=== PATIENT | female | born 1940 | race Caucasian/White ===

== ENCOUNTER 2016-12-16 08:42 | Emergency (ER) | payer OTHER ==
[2016-12-16] MEDS ORDERED: NS 500 ML IV ONE (09:23)
--- NOTE | 2016-12-16 09:53 | DX ---
Portable Chest, Single View 9:37 a.m. Hours Indication: Chest pain Comparison: 2 view chest dated August 28, 2009 Findings: Lungs remain well aerated and clear. Minimal diffuse peribronchial thickening is unchanged 2008. Heart size normal. Impression: Negative. No acute process.
[2016-12-16 09:55] VITALS: BP 149/86; PULSE 59; RESP 16; TEMP 98.6; O2SAT 96
--- NOTE | 2016-12-16 10:02 | UCPHY ---
H & P Time Seen by Provider: 12/16/16 09:24 Patient Type: Established HPI/ROS: HPI Fatigue, low energy. 76-year-old female by private vehicle. She reports that on November 17 she started feeling fatigued and describes this as having low energy as well as a decreased appetite and intermittent fever. She reports that she also had some intermittent headaches back in early November but these have resolved. She reports that she quit drinking caffeine in the form of coffee around November 17 as well and attributes her headaches to cessation of caffeine. She reports that she started feeling better on November 26 and . That over the last few days the symptoms have returned. ROS: Constitutional: As above. Eyes: No discharge. No changes in vision. ENT: No sore throat. No nasal congestion or rhinorrhea. Respiratory: No cough. No shortness of breath. Cardiac: No chest pain, no palpitations. Gastrointestinal: No abdominal pain, no vomiting, no diarrhea. Genitourinary: No hematuria. No dysuria or increased frequency with urination. Musculoskeletal: No back pain. No neck pain. No myalgias or arthralgias. Skin: No rashes. Neurological: As above. No focal weakness or altered sensation. Past medical history: Kidney stones, hysterectomy, broken heart syndrome, hypothyroidism, Yeimi's thyroiditis, type 2 diabetes, hypertrophic cardiomyopathy, hypertension, fibromyalgia, osteopenia. Primary care physician is Dr. Kate at the [facility]. Social history: Lives by herself. Nonsmoker. No alcohol. Physical Exam: General Appearance: Alert, no distress. This patient is responding to questions appropriately and in full sentences. This patient appears well- hydrated and well-nourished. Eyes: Pupils equal and round no pallor or injection. No lid edema, erythema or injection. ENT, Mouth: Mucous membranes are moist. The pharyngeal tissues are unremarkable. No edema or swelling. No asymmetry suggestive of abscess. No erythema or exudates. No proptosis. Respiratory: There are no retractions, lungs are clear to auscultation with good air movement bilaterally. Cardiovascular: Regular rate and rhythm. No murmur. Gastrointestinal: Abdomen is soft and nontender, no masses, bowel sounds normal. No focal tenderness at McBurney's point. No Brooks sign. Neurological: Motor sensory function is grossly intact. Cranial nerves are normal. Gait is normal. Skin: Warm and dry, no rashes. Musculoskeletal: Neck is supple and nontender. No CVA tenderness on palpation. Extremities are symmetrical. No pretibial edema. All joints range without pain or impingement. Psychiatric: No agitation. No depression. Database: EKG: EKG time is 9:49 a.m.; EKG shows a narrow complex normal sinus rhythm with a ventricular rate of 58. The OR, QRS, QT intervals are within normal limits. There is an incomplete right bundle branch block. Q-waves noted in 2, 3, AVF, V3, V4, V5 and V6. These are present on an old EKG from June of 2014. There are no ST-T wave changes indicative of ischemic or injury pattern. No evidence of right heart strain. Interpreted by me. Imaging: Chest x-ray AP portable; the cardiac mediastinal silhouette is unremarkable. No evidence of infiltrate or pneumothorax. No acute cardiopulmonary disease process noted. Interpreted by me. Procedures: Emergency department course: IV placed. She was placed on a monitoring manager. She will be started on IV normal saline with 250 cc 2 500 cc to be given over the next 1-2 hours. Her vital signs have been reviewed. She is mildly bradycardic a moderately hypertensive. 12:00 p.m., patient re-evaluated. Resting comfortably at this time. She has no complaints currently. Results of her blood work except for thyroid study and urinalysis discussed. She states she is able urinate force at this time. 12:20 p.m., discussed results of urinalysis and diagnosis of urinary tract infection. Discussed starting the patient on antibiotics. She was given 500 mg of Keflex. Results of TSH reviewed with her. She feels comfortable going home and I feel she is safe for discharge. I will have her follow up with her primary care physician. She will be prescribed Keflex for treatment of urinary tract infection. Otherwise her vital signs and diagnostic workup are reassuring. Return to Urgent Care precautions discussed with her. All of her questions were answered. She was discharged in good condition. Differential Diagnosis: The differential diagnosis on this patient includes but is not limited to viral syndrome, hypothyroid state, urinary tract infection. Acute coronary syndrome, pneumonia, serious bacterial infection unlikely. This represents a partial list of diagnoses considered. These considerations are based on history, physical exam, past history, reassessment and diagnostic testing. Smoking Status: Former smoker Constitutional: Initial Vital Signs Temperature (C) 37 C 12/16/16 09:47 Heart Rate 59 L 12/16/16 09:47 Respiratory Rate 16 12/16/16 09:47 Blood Pressure 149/86 H 12/16/16 09:47 O2 Sat (%) 96 12/16/16 09:47 O2 Delivery Mode Room Air Allergies/Adverse Reactions: adenosine Allergy (Verified 12/16/16 09:55) Rash diltiazem Allergy (Verified 12/16/16 09:55) Other-Enter Comments fructose Allergy (Verified 12/16/16 09:55) GI UPSET Home Medications: Medication Instructions Recorded Cholecalciferol Vit D3 [Vitamin D3 2,000 units PO HS 08/01/15 2000 units] Docusate Sodium [Colace 100 MG (*)] 100 mg PO HS 08/01/15 Famotidine [Pepcid 20 MG (*)] 20 mg PO Q2D 08/01/15 Gabapentin [Neurontin 300 MG (*)] 600 mg PO BID 08/01/15 Hydrocodone/APAP 5/325 [[place] 0.5 each PO DAILY PRN 08/01/15 5/325 (*)] Levothyroxine [Synthroid 100 mcg 100 mcg PO DAILY06 08/01/15 (*)] Losartan Potassium [Cozaar 50 mg 50 mg PO DAILY 08/01/15 (*)] Metoprolol Tartrate [Lopressor 100 100 mg PO BID 08/01/15 mg (*)] Omeprazole [Prilosec 20 mg] 20 mg PO Q2D 08/01/15 Pentoxifylline [TRENTAL 400mg (*)] 400 mg PO BID 08/01/15 Simvastatin [Zocor] 20 mg PO HS 08/01/15 Zaleplon [ZALEPLON] 10 mg PO HS PRN 08/01/15 sitaGLIPtin PHOSPHATE [Januvia 100 100 mg PO DAILY 08/01/15 MG (*)] Cephalexin [Keflex (*)] 500 mg PO Q6 7 Days 12/16/16 Medical Decision Making - Data Points Laboratory Results: Laboratory Results 12/16/16 11:00 12/16/16 11:00 12/16/16 12/16/16 12/16/16 12:10 11:00 10:25 WBC 6.82 10^3/uL (3.80-9.50) RBC 4.53 10^6/uL (4.18-5.33) Hgb 14.3 g/dL (12.6-16.3) Hct 41.8 % (38.0-47.0) MCV 92.3 fL (81.5-99.8) MCH 31.6 pg (27.9-34.1) MCHC 34.2 g/dL (32.4-36.7) RDW 13.5 % (11.5-15.2) Plt Count 192 10^3/uL (150-400) MPV 9.9 fL (8.7-11.7) Neut % (Auto) 60.0 % (39.3-74.2) Lymph % (Auto) 26.0 % (15.0-45.0) [place] % (Auto) 9.8 % (4.5-13.0) Eos % (Auto) 3.2 % (0.6-7.6) Baso % (Auto) 0.7 % (0.3-1.7) Nucleat RBC Rel Count 0.0 % (0.0-0.2) Absolute Neuts (auto) 4.09 10^3/uL (1.70-6.50) Absolute Lymphs (auto) 1.77 10^3/uL (1.00-3.00) Absolute Monos (auto) 0.67 10^3/uL (0.30-0.80) Absolute Eos (auto) 0.22 10^3/uL (0.03-0.40) Absolute Basos (auto) 0.05 10^3/uL (0.02-0.10) Absolute Nucleated RBC 0.00 10^3/uL (0-0.01) Immature Gran % 0.3 % (0.0-1.1) Immature Gran # 0.02 10^3/uL (0.00-0.10) PT 12.4 SEC (12.0-15.0) INR 0.94 (0.83-1.16) APTT 29.6 SEC (23.0-38.0) Sodium 141 mEq/L (134-144) Potassium 4.2 mEq/L (3.5-5.2) Chloride 102 mEq/L (97-110) Carbon Dioxide 25 mEq/l (22-31) Anion Gap 14 mEq/L (8-16) BUN 11 mg/dL (7-23) Creatinine 0.7 mg/dL (0.6-1.0) Estimated GFR > 60 Glucose 118 H mg/dL (70-100) Calcium 9.7 mg/dL (8.5-10.4) Troponin I < 0.012 ng/mL (0-0.034) TSH 0.485 uIU/mL (0.465-4.680) Urine Color YELLOW Urine Appearance CLEAR Urine pH 6.0 (5.0-7.5) Ur Specific [place] 1.020 (1.002-1.030) Urine Protein NEGATIVE (NEGATIVE) Urine Ketones NEGATIVE (NEGATIVE) Urine Blood 2+ H (NEGATIVE) Urine Nitrate POSITIVE H (NEGATIVE) Urine Bilirubin NEGATIVE (NEGATIVE) Urine Urobilinogen 0.2 EU (0.2-1.0) Ur Leukocyte Esterase TRACE H (NEGATIVE) Urine RBC 15-25 H /hpf (0-3) Urine WBC 10-15 H /hpf (0-3) Ur Epithelial Cells 1+ /lpf (NONE-1+) Urine Bacteria 4+ H /hpf (NONE SEEN) Urine Mucus 1+ /lpf (NONE-1+) Ur Culture Indicated? INDICATED H (NI) Urine Glucose NEGATIVE (NEGATIVE) Influenza Typ A,B (DFA) NEGATIVE FOR FLU (NEGATIVE) Medications Given: Discontinued Medications Cephalexin HCl (Keflex) 500 mg PO EDNOW ONE PRN Reason: Protocol Stop: 12/16/16 12:24 Last Admin: 12/16/16 12:43 Dose: 500 mg Sodium Chloride (Ns) 500 mls @ 0 mls/hr IV ONCE ONE PRN Reason: As Directed Stop: 12/16/16 09:24 Last Admin: 12/16/16 12:24 Dose: Not Given Departure - Departure Disposition: Home, Routine, Self-Care Clinical Impression: Fatigue, Urinary tract infection Condition: Good Instructions: Urinary Tract Infection in Women (ED) Additional Instructions: Read and follow provided instructions. Follow-up with your primary care physician in 1-2 days for re-evaluation. Take medication as prescribed. Keep well hydrated and get plenty of rest. Return to the emergency department for worsening symptoms or other serious concerns. Referrals: Annette Kate MD [Primary Care Provider] - As per Instructions Prescriptions: Cephalexin [Keflex (*)] 500 mg PO Q6 7 Days - PQRS PQRS Measurement: 134: Depression screening and followup, PRIME MD-PHQ2 (12 years and older) Over the last 2 weeks, how often have you been bothered by any of the following problems? 1. Feeling down, depressed, or hopeless? 2. Little interest or pleasure in doing things? Answered no to both questions. 130: Documentation of medications. Reviewed all patient medications, doses, route and frequency. 226: Do you smoke? No. 47: 65 and older: Advanced care planning. Patient designates surrogate decision maker as family. 51: 18 years old and older with diagnosis of COPD, spirometry performance. NA 52: 18 years old and older with COPD and symptoms of COPD or FEV1<60% predicted prescribed a B Agonist. NA
[2016-12-16 11:08] LABS: % IMMATURE GRANULYOCYTES 0.3 % (0.0-1.1); ABSOLUTE IMMATURE GRANULOCYTES 0.02 10^3/uL (0.00-0.10); ADD DIFF? NO; ADD MORPH? NO; ADD SCAN? NO; ATYPICAL LYMPHOCYTE FLAG 0 (0-99); FRAGMENT RBC FLAG 0 (0-99); HEMATOCRIT 41.8 % (38.0-47.0); HEMOGLOBIN 14.3 g/dL (12.6-16.3); LEFT SHIFT FLG 0 (0-99); LIPEMIA HEMOLYSIS FLAG 90 (0-99); MEAN CELL HEMOGLOBIN 31.6 pg (27.9-34.1); MEAN CELL HEMOGLOBIN CONCENTR. 34.2 g/dL (32.4-36.7); MEAN CELL VOLUME 92.3 fL (81.5-99.8); MEAN PLATELET VOLUME 9.9 fL (8.7-11.7); PLATELET CLUMPS FLAG 0 (0-99); PLATELET COUNT 192 10^3/uL (150-400); RED BLOOD CELL COUNT 4.53 10^6/uL (4.18-5.33); RED CELL DISTRIBUTION WIDTH 13.5 % (11.5-15.2)
[2016-12-16 11:17] LABS: INR 0.94 (0.83-1.16); PROTIME(PATIENT) 12.4 SEC (12.0-15.0)
[2016-12-16 11:18] LABS: APTT 29.6 SEC (23.0-38.0)
[2016-12-16 11:24] LABS: ANION GAP 14 mEq/L (8-16); CALCIUM 9.7 mg/dL (8.5-10.4); CARBON DIOXIDE 25 mEq/l (22-31); CHLORIDE 102 mEq/L (97-110); CREATININE 0.7 mg/dL (0.6-1.0); GLOMERULAR FILTRATION RATE > 60; GLUCOSE 118 mg/dL (70-100); POTASSIUM 4.2 mEq/L (3.5-5.2); SODIUM 141 mEq/L (134-144)
[2016-12-16 11:42] LABS: TROPONIN I < 0.012 ng/mL (0-0.034)
[2016-12-16 12:16] LABS: COLOR YELLOW; LEUKOCYTE ESTERASE,URINE TRACE (NEGATIVE); NITRITE,URINE POSITIVE (NEGATIVE)
[2016-12-16] MEDS ORDERED: CEPHALEXIN 500 MG CAP PO ONE (12:23)
[2016-12-16 12:26] LABS: BACTERIA 4+ /hpf (NONE SEEN); MUCUS 1+ /lpf (NONE-1+); RBC,URINE 15-25 /hpf (0-3)
--- NOTE | 2016-12-16 12:33 | CPEKG ---
Heart Rate: 58 RR Interval: 1034 P-R Interval: 164 QRSD Interval: 116 QT Interval: 468 QTC Interval: 460 P [place]: 53 QRS [place]: 91 T Wave [place]: 34 EKG Severity - ABNORMAL ECG - EKG Impression: SINUS RHYTHM EKG Impression: INCOMPLETE RIGHT BUNDLE BRANCH BLOCK EKG Impression: INFERIOR INFARCT, OLD Electronically Signed By: Flavio Mahajan 16-Dec-2016 13:00:35
== END 2016-12-16 12:43 | disposition home or self-care (01) ==
LOC: CED 08:42
DX: N39.0 Urinary tract infection, site not specified (principal)
CPT/HCPCS: 71010; 93005; G0463; 80048-PO; 81003-PO; 81015-PO; 84443-PO; 84484-PO; 85025-PO; 85610-PO; 85730-PO; 87400-PO; 93010-PO; 99215-PO

== ENCOUNTER → 2016-12-23 | Outpatient (CLI) | payer OTHER ==
--- NOTE | 2016-12-23 16:35 | DX ---
Paranasal Sinuses (Four Views) Clinical Indications: Chronic sinusitis in a 76-year-old female. Findings: The sinuses are normally developed and well aerated. The sinuses are clear. No osseous ero sive changes are identified. The nasal septum is midline. No masses and no fluid levels are seen. Impression: Normal study, negative for sinusitis.
== END ==
LOC: BMCIMAGING 15:21
PROVIDERS: ATTEND Internal Medicine
DX: R51 Headache (principal)

== ENCOUNTER 2017-01-29 09:40 | Emergency (ER) | payer OTHER ==
[2017-01-29 10:32] VITALS: BP 149/86; PULSE 71; RESP 18; TEMP 98.1; O2SAT 95
[2017-01-29 10:58] LABS: COLOR YELLOW; NITRITE,URINE NEGATIVE (NEGATIVE); PH,URINE 6.5 (5.0-7.5)
[2017-01-29 11:01] LABS: LEUKOCYTE ESTERASE,URINE 1+ (NEGATIVE)
[2017-01-29 11:11] LABS: RENAL EPITHELIAL CELLS OCCASIONAL /hpf (NONE SEEN); WBC,URINE 25-50 /hpf (0-3)
[2017-01-29 11:12] LABS: BACTERIA 4+ /hpf (NONE SEEN)
--- NOTE | 2017-01-29 11:19 | UCPHY ---
H & P Patient Type: Established Chief Complaint Nursing Narrative: MILD ABD PAIN, FATIGUE WITH NAUSEA YESTERDAY , LOW GRADE FEVER. RECENTLY TREATED FOR UTI 6 WEEKS AGO, TOOK FULL COURSE OF ABX Time Seen by Provider: 01/29/17 10:38 HPI/ROS: This patient presents with a chief complaint of malaise, nausea and some low abdominal discomfort which is currently not present. The patient has not been ill f since November 17 with similar nonspecific symptoms. Yesterday she had a temperature of a 100.5 degrees but her review of systems is generally late negative and is listed below. She was seen here on the 16 of December and at that time was diagnosed with the UTI which subsequently grew out E coli and placed on Keflex to which the organism was sensitive. At that time she had a normal CBC, her chemistries were negative, clotting studies normal, as were an EKG and a chest x-ray. REVIEW OF SYSTEMS: Constitutional: Intermittent low-grade fever, malaise Eyes: No complaints ENT: Mild rhinitis attributed to allergies but denies sore throat, ear pain Respiratory: No chest pain, no cough, some shortness of breath last night with noisy respirations Cardiac: No chest pain Gastrointestinal: See above, diminished appetite, gassy Genitourinary: Some frequency but denies urgency, dysuria or hematuria Musculoskeletal: No myalgias, no edema in the lower extremities Skin: No rash Neurological: Headache attributed to caffeine withdrawal. Source: Patient, RN notes reviewed, Old records Exam Limitations: No limitations - Medical/Surgical History Hx Asthma: No Hx Chronic Respiratory Disease: No Hx Diabetes: Yes Hx Cardiac Disease: Yes Hx Renal Disease: No Hx Cirrhosis: No Hx Alcoholism: No Hx HIV/AIDS: No Hx Splenectomy or Spleen Trauma: No Other PMH: kidney stones, takotsubo cardiomyopathy, cardio ablation, framinotomy , hashimotos, type 2 diabetes, HTN, fibromyalgia, osteopenia - Family History Significant Family History: No pertinent family hx - Social History Smoking Status: Former smoker - Physical Exam Exam: GENERAL: Well-appearing, well-nourished and in no acute distress. HEAD: Atraumatic, normocephalic. EYES: Pupils equal round and reactive to light, extraocular movements intact, sclera anicteric, conjunctiva are normal. ENT: nares patent, oropharynx clear without exudates. Moist mucous membranes. NECK: Normal range of motion, supple without lymphadenopathy or JVD. LUNGS: Breath sounds clear to auscultation bilaterally and equal. No wheezes rales or rhonchi. HEART: Regular rate and rhythm without murmurs, rubs or gallops. ABDOMEN: Soft, nontender, normoactive bowel sounds. No guarding, no rebound. No masses appreciated. Bowel sounds are increased EXTREMITIES: Normal range of motion, no pitting or edema. No clubbing or cyanosis. No calf tenderness NEUROLOGICAL: Cranial nerves II through XII grossly intact. Normal speech, normal gait. PSYCH: Normal mood, normal affect. SKIN: Warm, dry, normal turgor, no visible rashes or lesions. Back: No CVA or other tenderness Constitutional: Initial Vital Signs Temperature (C) 36.7 C 01/29/17 10:29 Heart Rate 71 01/29/17 10:29 Respiratory Rate 18 01/29/17 10:29 Blood Pressure 149/86 H 01/29/17 10:29 O2 Sat (%) 95 01/29/17 10:29 O2 Delivery Mode Room Air Allergies/Adverse Reactions: adenosine Allergy (Verified 01/29/17 10:25) Rash diltiazem Allergy (Verified 01/29/17 10:25) Other-Enter Comments fructose Allergy (Verified 01/29/17 10:25) GI UPSET Home Medications: Medication Instructions Recorded Cholecalciferol Vit D3 [Vitamin D3 2,000 units PO HS 08/01/15 2000 units] Docusate Sodium [Colace 100 MG (*)] 100 mg PO HS 08/01/15 Famotidine [Pepcid 20 MG (*)] 20 mg PO Q2D 08/01/15 Gabapentin [Neurontin 300 MG (*)] 600 mg PO BID 08/01/15 Hydrocodone/APAP 5/325 [[place] 0.5 each PO DAILY PRN 08/01/15 5/325 (*)] Levothyroxine [Synthroid 100 mcg 100 mcg PO DAILY06 08/01/15 (*)] Losartan Potassium [Cozaar 50 mg 50 mg PO DAILY 08/01/15 (*)] Metoprolol Tartrate [Lopressor 100 100 mg PO BID 08/01/15 mg (*)] Omeprazole [Prilosec 20 mg] 20 mg PO Q2D 09/15/15 Pentoxifylline [TRENTAL 400mg (*)] 400 mg PO BID 08/01/15 Simvastatin [Zocor] 20 mg PO HS 08/01/15 Zaleplon [ZALEPLON] 10 mg PO HS PRN 08/01/15 sitaGLIPtin PHOSPHATE [Januvia 100 100 mg PO DAILY 08/01/15 MG (*)] Cephalexin [Keflex (*)] 500 mg PO Q6 7 Days 12/16/16 Nitrofurantoin Macrobid [Macrobid] 100 mg PO BID #14 cap 01/29/17 Ondansetron Odt [Zofran Odt] 4 mg PO Q4PRN PRN #4 tab 01/29/17 Medical Decision Making Differential Diagnosis: In spite of this patient's abnormal urinalysis I am not complete that a urinary tract infection is the cause of her symptoms. Previously she took the antibiotics but did not feel better for several days and symptoms have recurred. She did have a normal urine culture in mid December. Because of her previously normal laboratory testing imaging an EKG I did not feel that it would be worthwhile to repeat any Of these. A culture is pending - Data Points Laboratory Results: 01/29/17 10:50 Urine Color YELLOW Urine Appearance HAZY Urine pH 6.5 (5.0-7.5) Ur Specific [place] 1.015 (1.002-1.030) Urine Protein NEGATIVE (NEGATIVE) Urine Ketones NEGATIVE (NEGATIVE) Urine Blood 2+ H (NEGATIVE) Urine Nitrate NEGATIVE (NEGATIVE) Urine Bilirubin NEGATIVE (NEGATIVE) Urine Urobilinogen 0.2 EU EU (0.2-1.0) Ur Leukocyte Esterase 1+ H (NEGATIVE) Urine RBC 5-10 /hpf H /hpf (0-3) Urine WBC 25-50 /hpf H /hpf (0-3) Ur Epithelial Cells TRACE /lpf /lpf (NONE-1+) Ur Renal Epithelial Cell OCCASIONAL /hpf H /hpf (NONE SEEN) Urine Bacteria 4+ /hpf H /hpf (NONE SEEN) Ur Culture Indicated? INDICATED H (NI) Urine Glucose NEGATIVE (NEGATIVE) Departure - Departure Disposition: Home, Routine, Self-Care Condition: Good Instructions: Urinary Tract Infection in Women (ED) Additional Instructions: You should follow-up with your script writer as quickly as possible. Although I am treating you for urinary tract infection I am not convinced that that is the cause of your symptoms. Referrals: Annette Kate MD [Primary Care Provider] - As per Instructions Sami Vences MD [Medical Doctor] - As per Instructions Prescriptions: Nitrofurantoin Macrobid [Macrobid] 100 mg PO BID #14 cap Ondansetron Odt [Zofran Odt] 4 mg PO Q4PRN PRN #4 tab PRN Reason: For Nausea & Vomiting - PQRS PQRS Measurement: Not applicable
== END 2017-01-29 11:42 | disposition home or self-care (01) ==
LOC: CED 09:40
DX: R50.9 Fever, unspecified (principal); R10.9 Unspecified abdominal pain; R53.83 Other fatigue; I10 Essential (primary) hypertension; E11.9 Type 2 diabetes mellitus without complications; E06.3 Autoimmune thyroiditis; M85.80 Other specified disorders of bone density and structure, unspecified site; Z87.891 Personal history of nicotine dependence
CPT/HCPCS: 81003-PO; 81015-PO; 99214-PO; G0463-PO

== ENCOUNTER → 2017-06-05 | Outpatient (CLI) | payer OTHER | LOC: BMCIMAGING 13:53 | PROVIDERS: ATTEND Internal Medicine | DX: Z12.31 Encounter for screening mammogram for malignant neoplasm of breast (principal) | CPT/HCPCS: G0202 ==

== ENCOUNTER → 2017-07-18 | Outpatient (CLI) | payer OTHER | LOC: BMCIMAGING 12:31 | PROVIDERS: ATTEND Internal Medicine | DX: K76.89 Other specified diseases of liver (principal) ==

== ENCOUNTER 2017-12-16 00:42 | Emergency (ER) | payer OTHER ==
--- NOTE | 2017-12-16 00:59 | EDPHY ---
H & P Time Seen by Provider: 12/16/17 00:49 HPI/ROS: 77-year-old female with past medical history including hypertension, cardiomyopathy with ablation, diabetes, hyperlipidemia, fibromyalgia presents today complaining bilateral arm heaviness/achiness similar to when her cardiomyopathy was diagnosed in 2008, abdominal bloating. She states she has been given a diagnosis of irritable bowel syndrome and recently has had approximately 2 weeks loose stools and bloating. She states the arm heaviness has resolved, however that it lasted for several hours. Review of systems As per HPI General no fever no chills no weakness HEENT no eye pain no eye discharge. No eye redness, no sore throat Respiratory no cough, no shortness of breath Cardiac no chest pain, no peripheral edema GI no abdominal pain, positive diarrhea, positive constipation, positive abdominal bloating no nausea, no vomiting no flank pain, no hematuria, no dysuria Musculoskeletal positive myalgias, no joint pain Heme no easy bruising, no easy bleeding Endo no polyuria, no polydipsia Skin no rashes, no pruritus Neuro no syncope, no dizziness, no headaches Psych is no suicidal ideation, no homicidal ideation Past Medical/Surgical History: Past medical history Hypertension Yeimi's Oye-rbjffdu-mztkfhltk diabetes mellitus Osteopenia Fibromyalgia Cardiomyopathy Social History: Denies alcohol or drug use Lives alone Smoking Status: Former smoker Physical Exam: 77-year-old female alert and oriented no acute distress nontoxic appearance, afebrile HEENT atraumatic normocephalic, extraocular muscles intact, anicteric Oropharynx negative for erythema negative exudate, tolerating her own secretions Neck supple no meningismus Lungs clear to auscultation bilaterally Heart regular rate and rhythm without murmur rub or gallop Abdomen distended, tympanitic, hyperactive bowel sounds with occasional tinkling Back no CVA tenderness, no step-offs, no spinal tenderness Extremities no cyanosis clubbing or edema Neuro alert and oriented, no focal deficits Constitutional: Initial Vital Signs Temperature (C) 36.4 C 12/16/17 01:04 Heart Rate 67 12/16/17 01:04 Respiratory Rate 20 12/16/17 01:04 Blood Pressure 126/66 H 12/16/17 01:04 O2 Sat (%) 95 12/16/17 01:04 O2 Delivery Mode Room Air Allergies/Adverse Reactions: adenosine Allergy (Verified 12/16/17 01:04) Rash diltiazem Allergy (Verified 12/16/17 01:04) Other-Enter Comments fructose Allergy (Verified 12/16/17 01:04) GI UPSET Home Medications: Medication Instructions Recorded Levothyroxine [Synthroid 100 mcg 100 mcg PO DAILY06 08/01/15 (*)] Losartan Potassium [Cozaar 50 mg 50 mg PO DAILY 08/01/15 (*)] Metoprolol Tartrate [Lopressor 100 100 mg PO BID 08/01/15 mg (*)] Omeprazole [Prilosec 20 mg] 20 mg PO Q2D 08/01/15 Zaleplon [ZALEPLON] 10 mg PO HS PRN 08/01/15 sitaGLIPtin PHOSPHATE [Januvia 100 100 mg PO DAILY 08/01/15 MG (*)] Eluxadoline [Viberzi] 100 mg PO 12/16/17 Zolpidem Tartrate [Ambien 10 mg] 12/16/17 Medical Decision Making - Diagnostics Imaging Results: Imaging Impressions Abdomen X-Ray 12/16/17 01:19 Impression: 1. Negative chest. 2. Findings most suggestive of enteritis are noted with no imaging findings to suggest mechanical obstruction. ED Course/Re-evaluation: Patient seen and evaluated for abdominal bloating and bilateral arm heaviness that started earlier this evening. EKG normal sinus rhythm rate of 70, right bundle branch block Compared to an EKG from November of 2016, no acute changes Obstructive series CBC wnl CMP wnl TSH wnl BNP wnl Troponin wnl Lactate wnl ua with bacteria, neg nitrite, urine culture ordered cxr no consolidation abd films no airfluid levels nsbgp Pt observed while awaiting labs, and xray, asymptomatic. No evidence for ischemia, no evidence for abdomianl pathology. IMP irritable bowel syndrome bloating plan home f/u pcp f/u asset specialist Differential Diagnosis: Differential diagnosis considered but not limited to: Gastroenteritis, irritable bowel syndrome, diverticulitis, appendicitis, bowel obstruction, myocardial infarction, medication reaction, urinary tract infection - Data Points Laboratory Results: Laboratory Results 12/16/17 01:25 12/16/17 01:25 Departure - Departure Disposition: Home, Routine, Self-Care Clinical Impression: Irritable bowel syndrome Condition: Good Instructions: Irritable Bowel Syndrome (DC), Gas and Bloating (ED) Referrals: Patient,NotPresent [Primary Care Provider] - As per Instructions
--- NOTE | 2017-12-16 01:06 | CPEKG ---
Heart Rate: 70 RR Interval: 857 P-R Interval: 172 QRSD Interval: 130 QT Interval: 444 QTC Interval: 480 P Geff: 54 QRS Geff: 90 T Wave Geff: 9 EKG Severity - ABNORMAL ECG - EKG Impression: SINUS RHYTHM EKG Impression: RBBB AND LPFB EKG Impression: PROBABLE INFERIOR INFARCT, OLD EKG Impression: PROBABLE ANTEROLATERAL INFARCT, OLD Electronically Signed By: Joni Weber 19-Dec-2017 12:51:23
[2017-12-16 01:08] VITALS: TEMP 97.5; O2SAT 95
[2017-12-16 01:34] LABS: PLATELET COUNT 178 10^3/uL (150-400)
[2017-12-16 01:48] LABS: CREATINE KINASE 74 IU/L (0-156)
[2017-12-16 03:09] VITALS: BP 106/49; PULSE 57; RESP 16
== END 2017-12-16 03:20 | disposition home or self-care (01) ==
LOC: CED 00:42
DX: K58.9 Irritable bowel syndrome, unspecified (principal); I10 Essential (primary) hypertension; E11.9 Type 2 diabetes mellitus without complications; Z87.891 Personal history of nicotine dependence
CPT/HCPCS: 74022-PO; 80053-PO; 81003-PO; 81015-PO; 82550-PO; 83605-PO; 83690-PO; 83880-PO; 84443-PO; 84484-PO; 85025-PO

== ENCOUNTER → 2018-03-02 | Outpatient (CLI) | payer OTHER | LOC: BMCIMAGING 13:31 | PROVIDERS: ATTEND Internal Medicine Rheumatology | DX: Z13.820 Encounter for screening for osteoporosis (principal); M85.89 Other specified disorders of bone density and structure, multiple sites; E03.9 Hypothyroidism, unspecified; Z78.0 Asymptomatic menopausal state; Z84.89 Family history of other specified conditions ==